=== PATIENT | male | born 1960 | race Caucasian/White ===

== ENCOUNTER → 2016-12-14 | Outpatient (CLI) | payer OTHER ==
[~2016-12-14] VITALS: Ht 177.8 cm; Wt 90.7 kg
[~2016-12-14] MED LIST: ASPIR 8181 MG PO; CENTRUM SILVER1 EAC2 PO; FISH OIL 1,001000 M2 PO; SIMVASTATIN80 MG PO
--- NOTE | ~2016-12-14 | P ---
[facility] [place] [address] PROCEDURE REPORT Name: SHAY PARKER Room #: [facility]#: [id number] Admission: 12/14/16 Attend Phys: Trip Couch MD Discharge: Date of : 60 Report #: [id number] THIS REPORT FOR: //name// CC: Alana Couch BRIEF HISTORY: The patient is a 56-year-old male with a family history of colon cancer, grandparent in 60s and first cousin in 50s. Last colonoscopy was 5 years ago. PREOPERATIVE DIAGNOSIS: Family history of colon cancer. POSTOPERATIVE DIAGNOSES: Mild sigmoid diverticulosis coli. MEDICATIONS: Deep sedation with propofol per anesthesia. SPECIMEN: None. ESTIMATED BLOOD LOSS: None. PROCEDURE: Colonoscopy to cecum and terminal ileum. FINDINGS: Prior to propofol sedation, procedure of colonoscopy discussed with the patient as well as potential risks and its complications. He indicates he understands and desires to proceed. DESCRIPTION OF PROCEDURE: With the patient in left lateral decubitus position, digital examination was completed which revealed no abnormalities. Subsequently, [employer] video colonoscope was introduced into the rectum and advanced under direct vision to the cecum. Done with minimal difficulty. The cecum was identified by the ileocecal valve and the appendiceal orifice. I was able to visualize the distal segment of terminal ileum, which was inspected and noted to be unremarkable. At that point, the scope was slowly withdrawn and careful circumferential views obtained including retroflexing the scope in the ascending colon. Upon slow withdrawal of the scope, the prep was excellent. The mucosa was within normal limits, normal vascular pattern, normal light reflex. As we withdrew the scope, no mucosal abnormalities were seen. No polyps were identified. He had normal mucosa throughout the entire examination. In the sigmoid colon, there is mild diverticulosis coli without endoscopic evidence of diverticulitis. Scope was withdrawn in the rectum. Upon retroflexion, no abnormalities were seen. Scope withdrawal. The patient tolerated the procedure well. CONDITION OF THE PATIENT UPON DISCHARGE: Following procedure, the patient drowsy, aroused, conversant and will be discharged home when fully ambulatory. [address] [address] PROCEDURE REPORT Name: SHAY PARKER Room #: [facility] [place].#: [id number] Admission: 12/14/16 Attend Phys: Trip Couch MD Discharge: Date of : 60 Report #: [id number] INSTRUCTIONS TO THE PATIENT AND FAMILY AT THE TIME OF DISCHARGE: No neoplastic lesions were seen today. Suggest, he return for followup colonoscopy in 10 years. He will return to care of Dr. Alana Tamayo. Will return in 10 years for a colonoscopy. Last exam, he had a hyperplastic polyp and none this time. Last colonoscopy 5 years ago. Withdrawal time from the cecum was 10 minutes. <ELECTRONICALLY SIGNED> By: Trip Couch MD 12/15/16 1523 [id number] Trip Couch MD /nt
== END | disposition home or self-care (01) ==
LOC: EDSTATUS 06:25 → GI 06:31
DX: K57.30 Diverticulosis of large intestine without perforation or abscess without bleeding (principal); E78.5 Hyperlipidemia, unspecified; Z87.891 Personal history of nicotine dependence; Z79.82 Long term (current) use of aspirin; Z98.890 Other specified postprocedural states
CPT/HCPCS: 62110